=== PATIENT | male | born 1985 | race Caucasian/White ===

== ENCOUNTER 2016-09-05 08:11 | Emergency (ER) | payer SELFPAY ==
[2016-09-05 08:15] VITALS: BP 175/105; BMI 25.0
[2016-09-05] MEDS ORDERED: TORADOL 60 MG VIAL IM ONE (08:41)
--- NOTE | 2016-09-05 08:42 | DR.TOOTHHP ---
HPI - Time Seen Time seen: 08:39 - Primary Care Physician Primary Care Physician: NFD - Complaints Chief Complaint Doctors Comments: Agree with statement. Patient reports that tooth pain started two days ago has no money to see dentist. Swelling has increased since yesterday. Chief Complaint:: PT. C/O ABSCESS TOOTH. RIGHT SIDE OF FACE IS SWOLLEN. PT. STATES IT IS ON THE UPPER RIGHT SIDE. - Source History Provided: Patient - Mode of Arrival Mode of Arrival: Ambulatory - Timing Onset of Chief Complaint: 09/03/16 PMH - PMH Past Medical History: No Past Surgical History: No Surgical History: No History - Family History History of Family Medical Conditions: Yes Family Medical History: Diabetes Mellitus, Hypertension - Social History Does patient currently use any type of tobacco product: Yes Have you used tobacco products in the last 12 months: Yes Type of Tobacco Use: Cigarettes Does any household member use tobacco: No Alcohol Use: None Do you use any recreational Drugs:: No Lives With: Significant Other Lives Where: Home - infectious screening In the last 2 months have you had wt loss of >10#?: NO Have you had fever, night sweats or hemotysis?: No Have you traveled outside the country in the last 6 months?: No Isolation: Standard ROS - Review of Systems Constitutional: No Symptoms Reported, Other (dental pain) Eyes: No Symptoms Reported ENTM: No Symptoms Reported Respiratoy: No Symptoms Reported Cardiovascular: No Symptoms Reported Gastrointestinal/Abdominal: No Symptoms Reported Genitourinary: No Symptoms Reported Neurological: No Symptoms Reported Musculoskeletal: No Symptoms Reported Integumentary: No Symptoms Reported Hematologic/Lymphatic: No Symptoms Reported Endocrine: No Symptoms Reported Psychiatric: No Symptoms Reported All Other Systems: Reviewed and Negative PE - Vital Signs Vitals: Temperature 99.4 F Pulse Rate 126 Respiratory Rate 17 Blood Pressure 175/105 O2 Sat by Pulse Oximetry 99 - General Limitations: No Limitations General Appearance: Alert - Head Head Exam: Normal Inspection, Atraumatic - Eyes Eye exam: Normal Appearance, PERRL, EOMI - ENT ENT Exam: Normal Exam External Ear Exam: Normal External Inspection TM/Canal Exam: Bilateral Normal Nose Exam: Normal Nose Exam Mouth Exam: Normal Inspection Teeth Exam: Other (#3) Throat Exam: Normal Inspection - Neck Neck Exam: Normal Inspection, Full ROM - Chest Chest Inspection: Normal Inspection - Respiratory Respiratory Exam: Normal Lung Sounds Bilat Respiratory Exam: Bilateral Clear to Auscultation - Cardiovascular Cardiovascular Exam: Regular Rate - Abdominal Exam Abdominal Exam: Normal Inspection Abdominal Tenderness: negative: RUQ, RLQ, LUQ, LLQ, Epigastrium, Suprapubic, Diffuse, Mild, Moderate, Severe, Other - Extremities Extremities Exam: negative: Normal Inspection, Full ROM, Tenderness, Normal Capillary Refill, Edema, Joint Swelling, Calf Tenderness, Other - Back Back Exam: Normal Inspection - Neurologic Neurological Exam: negative: Alert, Oriented X3, CN II-XII Intact, Normal Gait, Motor Sensory Deficit, Reflexes Normal, Other - Psychiatric Psychiatric Exam: Normal Affect - Skin Skin Exam: Warm, Dry, Intact - Diagnosis Discharge Problem: Pain due to dental caries - Discharge Plan Condition: Stable - Follow ups/Referrals Follow ups/Referrals: NFD,None [Primary Care Provider] - 3 days - Instructions
[2016-09-05] MEDS ORDERED: TORADOL 60 MG VIAL ONE (08:44)
== END 2016-09-05 08:58 | disposition home or self-care (01) ==
LOC: ER 08:27
DX: K02.9 Dental caries, unspecified (principal)
CPT/HCPCS: 96372; 99282; J1885

== ENCOUNTER 2019-11-04 11:32 | Observation (INO) ==
[2019-11-04] MEDS ORDERED: NITROSTAT ONE (11:38)
[2019-11-04] MEDS ORDERED: ATIVAN INJ 2 MG VIAL ONE (11:39)
[2019-11-04 11:55] VITALS: BMI 29.0
[2019-11-04] MEDS ORDERED: NITROSTAT SL PRN ×2 (11:56→14:39)
[2019-11-04] MEDS ORDERED: ASPIRIN PO ONE (11:56)
--- NOTE | 2019-11-04 12:03 | DR.CP ---
HPI Time Seen Time Seen by Provider: 11/04/19 11:40 PCP Primary Care Physician: jorge luis Complaint Chief Complaint:: pt was in the lobby stating he was having bad squeezing chest pain that just started. Source History Provided: Patient Mode of Arrival Mode of Arrival: Ambulatory Timing Onset of Chief Complaint: 11/04/19 PMH PMH Past Medical History: Yes Past Medical History: Hypertension Past Surgical History: No Surgical History: No History Family History History of Family Medical Conditions: Yes Family Medical History: Diabetes Mellitus and Hypertension Social History Does patient currently use any type of tobacco product: Yes Have you used tobacco products in the last 12 months: Yes Type of Tobacco Use: Cigarettes How many years tobacco product used: 6 Does any household member use tobacco: No Alcohol Use: None Do you use any recreational Drugs:: No Lives With: Family Lives Where: Home Infectious screening In the last 2 months have you had wt loss of >10#?: NO Have you had fever, night sweats or hemotysis?: No Have you traveled outside the country in the last 6 months?: No Isolation: Standard ROS Review of Systems Constitutional: No Symptoms Reported Eyes: No Symptoms Reported ENTM: No Symptoms Reported Respiratoy: No Symptoms Reported Cardiovascular: Chest Pain (pt qwith crushing CP 8-9/10 intensity precordial bejan just [employer] while he was driving in air conditioned car. no radiation + sense of impending doom ) Gastrointestinal/Abdominal: No Symptoms Reported Genitourinary: No Symptoms Reported Neurological: No Symptoms Reported Musculoskeletal: No Symptoms Reported Integumentary: No Symptoms Reported Hematologic/Lymphatic: No Symptoms Reported Endocrine: No Symptoms Reported All Other Systems: Reviewed and Negative PE Vitals Vitals: Temperature 98.6 F Pulse Rate 89 Respiratory Rate 18 Blood Pressure [Left Arm] 142/82 Blood Pressure 156/76 O2 Sat by Pulse Oximetry 96 General Limitations: No Limitations General Appearance: Alert, Anxious and In Distress Head Head Exam: Normal Inspection, Atraumatic and Normocephalic Eyes Eye exam: Normal Appearance, PERRL and EOMI ENT ENT Exam: Normal Exam, Normal Oropharynx, Normal External Ear Exam and Mucous Membranes Moist Chest Chest Inspection: Normal Inspection and Symmetric Chest Wall Rise; negative Rash Respiratory Respiratory Exam: Normal Lung Sounds Bilat; negative Accessory Muscle Use and Chest Wall Tenderness Respiratory Exam: Bilateral: Clear to Auscultation Cardiovascular Cardiovascular Exam: Regular Rate, Normal Rhythm and Normal Heart Sounds Abdominal Exam Abdominal Exam: Normal Inspection, Normal Bowel Sounds and Soft; negative Distention and Tenderness Back Back Exam: Normal Inspection and Full ROM; negative Tenderness Neurologic Neurological Exam: Alert and Oriented X3; negative Motor Sensory Deficit Psychiatric Psychiatric Exam: Normal Affect, Depressed and Anxious ROR Labs Reviewed Laboratory Results Reviewed?: Yes Result Diagrams: 11/04/19 11:36 11/04/19 11:36 Laboratory: WBC 10.1 X10^3/uL (3.6-10.0) H 11/04/19 11:36 RBC 5.22 X10^6/uL (4.7-6.0) 11/04/19 11:36 Hgb 15.3 g/dL (13.5-18.0) 11/04/19 11:36 Hct 45.6 % (42.0-54.0) 11/04/19 11:36 MCV 87.3 fL (80.0-100.0) 11/04/19 11:36 MCH 29.2 pg (27.0-34.0) 11/04/19 11:36 MCHC 33.5 g/dL (33.0-35.0) 11/04/19 11:36 RDW 13.6 % (11.6-16.5) 11/04/19 11:36 Plt Count 309 X10^3/uL (150.0-450.0) 11/04/19 11:36 MPV 9.2 fL (7.4-11.0) 11/04/19 11:36 Neut % (Auto) 66.7 % (42.0-75.0) 11/04/19 11:36 Lymph % (Auto) 21.7 % (21.0-51.0) 11/04/19 11:36 Grayson % (Auto) 8.7 % (0.0-13.0) 11/04/19 11:36 Eos % (Auto) 1.9 % (0.9-2.9) 11/04/19 11:36 Baso % (Auto) 1.0 % (0.2-1.0) 11/04/19 11:36 Neut # (Auto) 6.8 x10^3/uL (2.2-4.8) H 11/04/19 11:36 Lymph # (Auto) 2.2 X10^3/uL (1.3-2.9) 11/04/19 11:36 Grayson # (Auto) 0.9 x10^3/uL (0.3-0.8) H 11/04/19 11:36 Eos # (Auto) 0.2 x10^3/uL (0.0-0.2) 11/04/19 11:36 Baso # (Auto) 0.1 X10^3/uL (0.0-0.1) 11/04/19 11:36 Absolute Nucleated RBC 0.1 /100WBC 11/04/19 11:36 PT 12.0 SECONDS (11.8-14.3) 11/04/19 11:36 INR Target Range - 11/04/19 11:36 INR 0.91 (0.8-1.3) 11/04/19 11:36 APTT 29.2 SECONDS (22.9-36.5) 11/04/19 11:36 PTT Comment - 11/04/19 11:36 Sodium 137 mmol/L (136-145) 11/04/19 11:36 Corrected Sodium 138 mmol/L (136-145) 11/04/19 11:36 Potassium 3.6 mmol/L (3.5-5.1) 11/04/19 11:36 Chloride 99 mmol/L (98-107) 11/04/19 11:36 Carbon Dioxide 26.2 mmol/L (21-32) 11/04/19 11:36 BUN 10 mg/dL (7-18) 11/04/19 11:36 Creatinine 1.02 mg/dL (0.70-1.30) 11/04/19 11:36 Est GFR (MDRD) Af Amer > 60 (>60) 11/04/19 11:36 Est GFR (MDRD) Non-Af > 60 (>60) 11/04/19 11:36 Glucose 132 mg/dL (65-99) H 11/04/19 11:36 Calcium 9.4 mg/dL (8.5-10.1) 11/04/19 11:36 Corrected Calcium TNP 11/04/19 11:36 Magnesium 1.6 mg/dL (1.7-2.9) L 11/04/19 11:36 Total Bilirubin 0.30 mg/dL (0.2-1.0) 11/04/19 11:36 AST 22 Units/L (15-37) 11/04/19 11:36 ALT 46 Units/L (12-78) 11/04/19 11:36 Alkaline Phosphatase 76 Units/L (46-116) 11/04/19 11:36 Creatine Kinase 116 Units/L (39-308) 11/04/19 11:36 CK-MB (CK-2) < 1.0 ng/mL (0-4.0) 11/04/19 11:36 CK/CKMB % Calc 0.9 % (<4) 11/04/19 11:36 Troponin I < 0.02 ng/mL (0-1.5) 11/04/19 11:36 Total Protein 8.2 g/dL (6.4-8.2) 11/04/19 11:36 Albumin 4.1 g/dL (3.4-5.0) 11/04/19 11:36 Globulin 4.1 g/dL (2.5-4.5) 11/04/19 11:36 Albumin/Globulin Ratio 1.0 Ratio (1.1-2.1) L 11/04/19 11:36 Opioid Opioid Risk Tool Age (Lamberto box if 16-45): Yes Total: 1 Total Score Risk Category: Low Risk Copyright: Wm IQBAL predicting aberrant behaviors Diagnosis Discharge Problem: Chest pain Instructions Forms: Excuse From Work Precautions for COVID19 Patient Portal Social Distancing ADDITIONAL NOTES Additional Notes Additional Notes: EKG #111:28 NSR 87bpm lft axis normal intervals biphasic p wave suggestive of left atrial enlargement normal QRS inverted T wave III EKG #2 12:31 NSR 86 bpm normal axis normal intervals normal QRS inverted T wave III
[2019-11-04 12:15] LABS: BASOPHILS # (AUTO) 0.1 X10^3/uL (0.0-0.1); EOSINOPHILS # (AUTO) 0.2 x10^3/uL (0.0-0.2); EOSINOPHILS % (AUTO) 1.9 % (0.9-2.9); HEMATOCRIT 45.6 % (42.0-54.0); HEMOGLOBIN 15.3 g/dL (13.5-18.0); LYMPHOCYTES # (AUTO) 2.2 X10^3/uL (1.3-2.9); LYMPHOCYTES % (AUTO) 21.7 % (21.0-51.0); MEAN CORPUSCULAR HEMOGLOBIN 29.2 pg (27.0-34.0); MEAN CORPUSCULAR HGB CONC 33.5 g/dL (33.0-35.0); MEAN CORPUSCULAR VOLUME 87.3 fL (80.0-100.0); MEAN PLATELET VOLUME 9.2 fL (7.4-11.0); MONOCYTES # (AUTO) 0.9 x10^3/uL (0.3-0.8); MONOCYTES % (AUTO) 8.7 % (0.0-13.0); NEUTROPHILS # (AUTO) 6.8 x10^3/uL (2.2-4.8); NEUTROPHILS % (AUTO) 66.7 % (42.0-75.0); PLATELET COUNT 309 X10^3/uL (150.0-450.0); RED BLOOD COUNT 5.22 X10^6/uL (4.7-6.0); RED CELL DISTRIBUTION WIDTH 13.6 % (11.6-16.5); WHITE BLOOD COUNT 10.1 X10^3/uL (3.6-10.0)
--- NOTE | 2019-11-04 12:15 | RAD ---
HISTORYCHEST PAINSTUDYPortable AP chestCOMPARISONNoneFINDINGSThe lungs are clear and the heart and mediastinum are unremarkable. There is no edema or effusion or congestion.IMPRESSIONNo evidence for active cardiopulmonary diseaseElectronically signed by: JUSTA SANCHEZ (Nov 04, 2019 12:14:24)
[2019-11-04] MEDS ORDERED: MORPHINE SULFATE INJ 4 MG IVP ONE ×2 (12:25→15:22)
[2019-11-04] MEDS ORDERED: MORPHINE SULFATE INJ 4 MG ONE ×2 (12:28→15:43)
[2019-11-04 12:29] LABS: BLOOD UREA NITROGEN 10 mg/dL (7-18); CALCIUM 9.4 mg/dL (8.5-10.1); CARBON DIOXIDE 26.2 mmol/L (21-32); CHLORIDE 99 mmol/L (98-107); COR NA(FOR HYPERGLY) 138 mmol/L (136-145); CREATININE 1.02 mg/dL (0.70-1.30); SODIUM 137 mmol/L (136-145); TROPONIN I < 0.02 ng/mL (0-1.5); eGFR NON BLACK RACES > 60 (>60)
[2019-11-04 12:35] LABS: ALANINE AMINOTRANSFERASE 46 Units/L (12-78); ALBUMIN 4.1 g/dL (3.4-5.0); ALKALINE PHOSPHATASE 76 Units/L (46-116); ASPARTATE AMINO TRANSFERASE 22 Units/L (15-37); CKMB % 0.9 % (<4); CREATINE KINASE 116 Units/L (39-308); CREATINE KINASE MB < 1.0 ng/mL (0-4.0); MAGNESIUM 1.6 mg/dL (1.7-2.9); TOTAL PROTEIN 8.2 g/dL (6.4-8.2)
[2019-11-04] MEDS ORDERED: ZOFRAN INJ 4 MG VIAL IVP ONE (15:22)
--- NOTE | 2019-11-04 15:39 | DR.CP ---
HPI Time Seen Time Seen by Provider: 11/04/19 11:40 PCP Primary Care Physician: jorge luis Complaint Chief Complaint:: pt was in the lobby stating he was having bad squeezing chest pain that just started. COVID-19 Coronavirus risk:travel/contact w/high risk person: No Has patient experienced Coronavirus symptoms: No Source History Provided: Patient Mode of Arrival Mode of Arrival: Ambulatory Timing Onset of Chief Complaint: 11/04/19 PMH PMH Past Medical History: Yes Past Medical History: Hypertension Past Surgical History: No Surgical History: No History Family History History of Family Medical Conditions: Yes Family Medical History: Diabetes Mellitus and Hypertension Social History Does patient currently use any type of tobacco product: Yes Have you used tobacco products in the last 12 months: Yes Type of Tobacco Use: Cigarettes How many years tobacco product used: 6 Does any household member use tobacco: No Alcohol Use: None Do you use any recreational Drugs:: No Lives With: Family Lives Where: Home Travel Risk Coronavirus risk:travel/contact w/high risk person: No Has patient experienced Coronavirus symptoms: No Infectious screening In the last 2 months have you had wt loss of >10#?: NO Have you had fever, night sweats or hemotysis?: No Have you traveled outside the country in the last 6 months?: No Isolation: Standard PE Vitals Vitals: Temperature 98.6 F Pulse Rate 87 Respiratory Rate 18 Blood Pressure [Left Arm] 142/82 Blood Pressure 144/95 O2 Sat by Pulse Oximetry 98 ROR Labs Reviewed Result Diagrams: 11/04/19 11:36 11/04/19 11:36 Laboratory: WBC 10.1 X10^3/uL (3.6-10.0) H 11/04/19 11:36 RBC 5.22 X10^6/uL (4.7-6.0) 11/04/19 11:36 Hgb 15.3 g/dL (13.5-18.0) 11/04/19 11:36 Hct 45.6 % (42.0-54.0) 11/04/19 11:36 MCV 87.3 fL (80.0-100.0) 11/04/19 11:36 MCH 29.2 pg (27.0-34.0) 11/04/19 11:36 MCHC 33.5 g/dL (33.0-35.0) 11/04/19 11:36 RDW 13.6 % (11.6-16.5) 11/04/19 11:36 Plt Count 309 X10^3/uL (150.0-450.0) 11/04/19 11:36 MPV 9.2 fL (7.4-11.0) 11/04/19 11:36 Neut % (Auto) 66.7 % (42.0-75.0) 11/04/19 11:36 Lymph % (Auto) 21.7 % (21.0-51.0) 11/04/19 11:36 Crane % (Auto) 8.7 % (0.0-13.0) 11/04/19 11:36 Eos % (Auto) 1.9 % (0.9-2.9) 11/04/19 11:36 Baso % (Auto) 1.0 % (0.2-1.0) 11/04/19 11:36 Neut # (Auto) 6.8 x10^3/uL (2.2-4.8) H 11/04/19 11:36 Lymph # (Auto) 2.2 X10^3/uL (1.3-2.9) 11/04/19 11:36 Crane # (Auto) 0.9 x10^3/uL (0.3-0.8) H 11/04/19 11:36 Eos # (Auto) 0.2 x10^3/uL (0.0-0.2) 11/04/19 11:36 Baso # (Auto) 0.1 X10^3/uL (0.0-0.1) 11/04/19 11:36 Absolute Nucleated RBC 0.1 /100WBC 11/04/19 11:36 PT 12.0 SECONDS (11.8-14.3) 11/04/19 11:36 INR Target Range - 11/04/19 11:36 INR 0.91 (0.8-1.3) 11/04/19 11:36 APTT 29.2 SECONDS (22.9-36.5) 11/04/19 11:36 PTT Comment - 11/04/19 11:36 Sodium 137 mmol/L (136-145) 11/04/19 11:36 Corrected Sodium 138 mmol/L (136-145) 11/04/19 11:36 Potassium 3.6 mmol/L (3.5-5.1) 11/04/19 11:36 Chloride 99 mmol/L (98-107) 11/04/19 11:36 Carbon Dioxide 26.2 mmol/L (21-32) 11/04/19 11:36 BUN 10 mg/dL (7-18) 11/04/19 11:36 Creatinine 1.02 mg/dL (0.70-1.30) 11/04/19 11:36 Est GFR (MDRD) Af Amer > 60 (>60) 11/04/19 11:36 Est GFR (MDRD) Non-Af > 60 (>60) 11/04/19 11:36 Glucose 132 mg/dL (65-99) H 11/04/19 11:36 Calcium 9.4 mg/dL (8.5-10.1) 11/04/19 11:36 Corrected Calcium TNP 11/04/19 11:36 Magnesium 1.6 mg/dL (1.7-2.9) L 11/04/19 11:36 Total Bilirubin 0.30 mg/dL (0.2-1.0) 11/04/19 11:36 AST 22 Units/L (15-37) 11/04/19 11:36 ALT 46 Units/L (12-78) 11/04/19 11:36 Alkaline Phosphatase 76 Units/L (46-116) 11/04/19 11:36 Creatine Kinase 116 Units/L (39-308) 11/04/19 11:36 CK-MB (CK-2) < 1.0 ng/mL (0-4.0) 11/04/19 11:36 CK/CKMB % Calc 0.9 % (<4) 11/04/19 11:36 Troponin I < 0.02 ng/mL (0-1.5) 11/04/19 11:36 Total Protein 8.2 g/dL (6.4-8.2) 11/04/19 11:36 Albumin 4.1 g/dL (3.4-5.0) 11/04/19 11:36 Globulin 4.1 g/dL (2.5-4.5) 11/04/19 11:36 Albumin/Globulin Ratio 1.0 Ratio (1.1-2.1) L 11/04/19 11:36 Opioid Opioid Risk Tool Age (Lamberto box if 16-45): Yes Total: 1 Total Score Risk Category: Low Risk Copyright: Wm IQBAL predicting aberrant behaviors Diagnosis Discharge Problem: Chest pain Instructions Forms: Excuse From Work Precautions for COVID19 Patient Portal Social Distancing ADDITIONAL NOTES Additional Notes Additional Notes: pt with c/o of CP Hear RR no M normals1/s2 ekg NSR 74bpm normal axis ivcd (borderline) invertted T waves III unchanged from prior
[2019-11-04] MEDS ORDERED: ZOFRAN INJ 4 MG VIAL ONE (15:43)
[2019-11-04] MEDS ORDERED: APRESOLINE INJ 20 MG VIAL IVP ONE (20:26)
[2019-11-04] MEDS: MORPHINE SULFATE INJ 2 MG INJ IVP PRN (21:09)
[2019-11-04] MEDS ORDERED: KLOR-CON PO PRN (21:12)
[2019-11-04] MEDS ORDERED: MICRO K EXTEN CAP 10 MEQ PO PRN (21:12)
[2019-11-04] MEDS ORDERED: POTASSIUM CHL 60 MEQ/NS 0.45% 500 ML IV PRN (21:12)
[2019-11-04] MEDS ORDERED: POTASSIUM CHL 40 MEQ/NS 0.45% 500 ML IV PRN (21:12)
[2019-11-04] MEDS ORDERED: K-DUR TAB 20 MEQ PO PRN (21:12)
[2019-11-04] MEDS ORDERED: K-RIDER 10 MEQ/NS 100 ML 10 MEQ/100 ML BAG IV PRN (21:12)
[2019-11-04] MEDS ORDERED: POTASSIUM CHLORIDE LIQ 20 MEQ UDC PO PRN (21:12)
[2019-11-04] MEDS ORDERED: NS 100 ML IV 100 ML IV ONE (21:44)
[2019-11-04] MEDS: MAGNESIUM SULFATE 1 GRAM/100 mL PREMIX 1 GM/100 ML BAG IV PRN ×2 (22:00→23:30)
[2019-11-05 00:03] LABS: CKMB % 1.2 % (<4); CREATINE KINASE 81 Units/L (39-308); CREATINE KINASE MB < 1.0 ng/mL (0-4.0); TROPONIN I < 0.02 ng/mL (0-1.5)
[2019-11-05] MEDS: MORPHINE SULFATE INJ 2 MG INJ IVP PRN ×2 (03:30→09:06)
[2019-11-05 08:53] LABS: BASOPHILS # (AUTO) 0.1 X10^3/uL (0.0-0.1); BASOPHILS % (AUTO) 0.9 % (0.2-1.0); EOSINOPHILS # (AUTO) 0.2 x10^3/uL (0.0-0.2); EOSINOPHILS % (AUTO) 2.3 % (0.9-2.9); HEMATOCRIT 45.1 % (42.0-54.0); HEMOGLOBIN 15.3 g/dL (13.5-18.0); LYMPHOCYTES # (AUTO) 1.6 X10^3/uL (1.3-2.9); LYMPHOCYTES % (AUTO) 16.5 % (21.0-51.0); MEAN CORPUSCULAR HEMOGLOBIN 29.7 pg (27.0-34.0); MEAN CORPUSCULAR HGB CONC 33.8 g/dL (33.0-35.0); MEAN CORPUSCULAR VOLUME 87.7 fL (80.0-100.0); MEAN PLATELET VOLUME 8.6 fL (7.4-11.0); MONOCYTES # (AUTO) 0.7 x10^3/uL (0.3-0.8); MONOCYTES % (AUTO) 6.6 % (0.0-13.0); NEUTROPHILS # (AUTO) 7.3 x10^3/uL (2.2-4.8); NEUTROPHILS % (AUTO) 73.7 % (42.0-75.0); PLATELET COUNT 267 X10^3/uL (150.0-450.0); RED BLOOD COUNT 5.15 X10^6/uL (4.7-6.0); RED CELL DISTRIBUTION WIDTH 13.5 % (11.6-16.5); WHITE BLOOD COUNT 9.9 X10^3/uL (3.6-10.0)
[2019-11-05 08:59] LABS: BLOOD UREA NITROGEN 16 mg/dL (7-18); CALCIUM 9.1 mg/dL (8.5-10.1); CARBON DIOXIDE 26.2 mmol/L (21-32); CHLORIDE 103 mmol/L (98-107); CREATININE 0.95 mg/dL (0.70-1.30); SODIUM 138 mmol/L (136-145); eGFR NON BLACK RACES > 60 (>60)
[2019-11-05] MEDS ORDERED: ASPIRIN 81 MG CHEWTAB PO SCH (09:00)
[2019-11-05] MEDS ORDERED: NORVASC TAB 10 MG PO SCH (09:00)
--- NOTE | 2019-11-05 09:38 | DR.SSS ---
SHORT STAY SUMMARY Past Medical History Past Medical History: Hypertension Past Surgical History Surgical History: No History Allergies Allergies Allergy/AdvReac Type Severity Reaction Status Date / Time amoxicillin Allergy Verified 06/04/18 12:39 Medications Home Medications: amoxicillin Allergy (Verified 06/04/18 12:39) CONTINUE taking the following medications amlodipine [Norvasc] 10 mg PO DAILY 11/04/19 [History] Family History Family Medical History: MT and Hypertension Social History Does patient currently use any type of tobacco product: Yes Have you used tobacco products in the last 12 months: Yes Type of Tobacco Use: Cigarettes How many years tobacco product used: 6 Does any household member use tobacco: No Alcohol Use: None Drug Use: None Physical Exam Vital Signs: Last Vital Signs Temp 98.0 F 11/05/19 04:00 Pulse 67 11/05/19 04:00 Resp 18 11/05/19 09:06 BP 138/72 11/05/19 04:00 Pulse Ox 96 11/05/19 04:00 Labs Labs: Laboratory Last Values WBC 9.9 X10^3/uL (3.6-10.0) 11/05/19 08:34 RBC 5.15 X10^6/uL (4.7-6.0) 11/05/19 08:34 Hgb 15.3 g/dL (13.5-18.0) 11/05/19 08:34 Hct 45.1 % (42.0-54.0) 11/05/19 08:34 MCV 87.7 fL (80.0-100.0) 11/05/19 08:34 MCH 29.7 pg (27.0-34.0) 11/05/19 08:34 MCHC 33.8 g/dL (33.0-35.0) 11/05/19 08:34 RDW 13.5 % (11.6-16.5) 11/05/19 08:34 Plt Count 267 X10^3/uL (150.0-450.0) 11/05/19 08:34 MPV 8.6 fL (7.4-11.0) 11/05/19 08:34 Neut % (Auto) 73.7 % (42.0-75.0) 11/05/19 08:34 Lymph % (Auto) 16.5 % (21.0-51.0) L 11/05/19 08:34 Johnson % (Auto) 6.6 % (0.0-13.0) 11/05/19 08:34 Eos % (Auto) 2.3 % (0.9-2.9) 11/05/19 08:34 Baso % (Auto) 0.9 % (0.2-1.0) 11/05/19 08:34 Neut # (Auto) 7.3 x10^3/uL (2.2-4.8) H 11/05/19 08:34 Lymph # (Auto) 1.6 X10^3/uL (1.3-2.9) 11/05/19 08:34 Johnson # (Auto) 0.7 x10^3/uL (0.3-0.8) 11/05/19 08:34 Eos # (Auto) 0.2 x10^3/uL (0.0-0.2) 11/05/19 08:34 Baso # (Auto) 0.1 X10^3/uL (0.0-0.1) 11/05/19 08:34 Absolute Nucleated RBC 0.0 /100WBC 11/05/19 08:34 PT 12.0 SECONDS (11.8-14.3) 11/04/19 11:36 INR Target Range - 11/04/19 11:36 INR 0.91 (0.8-1.3) 11/04/19 11:36 APTT 29.2 SECONDS (22.9-36.5) 11/04/19 11:36 PTT Comment - 11/04/19 11:36 Sodium 138 mmol/L (136-145) 11/05/19 08:34 Corrected Sodium TNP 11/05/19 08:34 Potassium 4.1 mmol/L (3.5-5.1) 11/05/19 08:34 Chloride 103 mmol/L (98-107) 11/05/19 08:34 Carbon Dioxide 26.2 mmol/L (21-32) 11/05/19 08:34 BUN 16 mg/dL (7-18) 11/05/19 08:34 Creatinine 0.95 mg/dL (0.70-1.30) 11/05/19 08:34 Est GFR (MDRD) Af Amer > 60 (>60) 11/05/19 08:34 Est GFR (MDRD) Non-Af > 60 (>60) 11/05/19 08:34 Glucose 105 mg/dL (65-99) H 11/05/19 08:34 Calcium 9.1 mg/dL (8.5-10.1) 11/05/19 08:34 Corrected Calcium TNP 11/04/19 11:36 Magnesium 1.9 mg/dL (1.7-2.9) 11/05/19 04:28 Total Bilirubin 0.30 mg/dL (0.2-1.0) 11/04/19 11:36 AST 22 Units/L (15-37) 11/04/19 11:36 ALT 46 Units/L (12-78) 11/04/19 11:36 Alkaline Phosphatase 76 Units/L (46-116) 11/04/19 11:36 Creatine Kinase 81 Units/L (39-308) 11/04/19 23:29 CK-MB (CK-2) < 1.0 ng/mL (0-4.0) 11/04/19 23:29 CK/CKMB % Calc 1.2 % (<4) 11/04/19 23:29 Troponin I < 0.02 ng/mL (0-1.5) 11/04/19 23:29 Total Protein 8.2 g/dL (6.4-8.2) 11/04/19 11:36 Albumin 4.1 g/dL (3.4-5.0) 11/04/19 11:36 Globulin 4.1 g/dL (2.5-4.5) 11/04/19 11:36 Albumin/Globulin Ratio 1.0 Ratio (1.1-2.1) L 11/04/19 11:36 Discharge Medications Discharge Medications: Home Medication List amlodipine [Norvasc] 10 mg PO DAILY 11/04/19 [History] Prescriptions:
[2019-11-05 10:52] VITALS: BP 147/90
== END 2019-11-05 11:00 | disposition home or self-care (01) ==
LOC: ER 11:32 → MED/SURG 11:32
PROVIDERS: ADMIT Internal Medicine; ATTEND Internal Medicine
DX: R94.31 Abnormal electrocardiogram [ECG] [EKG]; Z79.899 Other long term (current) drug therapy; R07.89 Other chest pain
CPT/HCPCS: 36415; 71010; 71045; 80048; 80053; 82550; 82553; 83735; 84484; 85025; 85610; 85730; 93005; 93306; 94760; 96365; 96374; 96375; 99284; A4216; A4222; G0378; J0360; J2270; J2405; J3475